=== PATIENT | female | born 1955 | race Two or more races ===

== ENCOUNTER 2024-02-26 14:17 | Emergency (ER) | payer SELFPAY ==
[~2024-02-26] VITALS: Ht 167.6 cm; Wt 68.0 kg
[2024-02-26 14:18] VITALS: PULSE 162; RESP 35; O2SAT 89
[2024-02-26] MEDS ORDERED: ETOMIDATE (2MG/ML) 20ML VIAL IV ONE (14:22)
[2024-02-26] MEDS ORDERED: SUCCINYLCHOLINE CHLORIDE 20 MG/ML 10ML VIAL IV ONE (14:22)
[2024-02-26] MEDS: ETOMIDATE (2MG/ML) 20ML VIAL IV ONE (14:27)
[2024-02-26] MEDS: SUCCINYLCHOLINE CHLORIDE 20 MG/ML 10ML VIAL IV ONE (14:27)
[2024-02-26 14:50] LABS: Basophils # (auto) 0 10 ^3/uL (0-0.2); Basophils % (auto) 0.4 % (0.0-2.0); Eosinophils # (auto) 0 10 ^3/uL (0-0.8); Eosinophils % (auto) 0.3 % (0.0-7.0); Hematocrit 40.4 % (36.0-46.0); Hemoglobin 13.7 g/dL (12.2-16.2); Lymphocytes # (auto) 1.7 10 ^3/uL (0.4-5.4); Lymphocytes % (auto) 27.7 % (10.0-50.0); Mean Corpuscular Hgb Conc. 33.9 g/dL (32.0-36.0); Mean Corpuscular Volume 97.3 fL (80.0-100.0); Monocytes # (auto) 0.2 10 ^3/uL (0-1.3); Neutrophils # (auto) 4.3 10 ^3/uL (1.6-8.6); Neutrophils % (auto) 68.6 % (37.0-80.0); Nucleated Red Blood Cells % 0.3 %; Red Blood Cells 4.15 10^6/uL (4.0-5.20); Red Cell Distribution Width 14.5 % (11.8-14.3); White Blood Cell 6.3 10^3/uL (4.4-10.8)
[2024-02-26] MEDS: ACETAMINOPHEN IV 1000 MG/100ML (10MG/ML) IV STA (15:00)
[2024-02-26] MEDS: SODIUM CHLORIDE 0.9% 1,000 ML IVB ONE (15:03)
[2024-02-26 15:22] LABS: Alanine Aminotransferase 27 U/L (7-40); Albumin 4.2 g/dL (3.2-4.8); Alkaline Phosphatase 76 U/L (46-116); Anion Gap 19 (5-15); Aspartate Aminotransferase 29 U/L (13-40); BUN/Creatinine Ratio 9.4 (10.0-20.0); Blood Alcohol 162.9 mg/dL (<10); Blood Urea Nitrogen 12 mg/dL (9-23); Calcium 9.4 mg/dL (8.7-10.4); Carbon Dioxide 14 mmol/L (20-30); Chloride 113 mmol/L (98-107); Glucose 207 mg/dL (74-106); Potassium 4.3 mmol/L (3.5-5.1); Sodium 146 mmol/L (136-145)
[2024-02-26 15:23] LABS: Bilirubin, Total 0.3 mg/dL (0.2-1.0); Total Protein 6.4 g/dL (5.7-8.2)
[2024-02-26] MEDS: MIDAZOLAM DRIP 50 mg/50mL 50 ML IV SCH (15:26)
[2024-02-26] MEDS: MIDAZOLAM DRIP 50 mg/50mL 50 ML IV ONE (15:27)
[2024-02-26 15:45] LABS: Lactic Acid w/Reflex 6.5 mmol/L (0.4-2.0)
[2024-02-26] MEDS: ADENOSINE 6 MG/2 ML INJ IV ONE (15:47)
[2024-02-26] MEDS: cefTRIAXone 1GM/50ML D5W 50 ML IV ONE (15:59)
[2024-02-26] MEDS: SODIUM CHLORIDE 0.9% 1,800 ML IV ONE (16:00)
[2024-02-26 16:02] LABS: Base Excess -13.6 mmol/L (-2.0-2.0)
[2024-02-26] MEDS: VANCOMYCIN 1GM/200ML 200 ML IV ONE (16:08)
[2024-02-26 16:31] VITALS: BP 102/74; PULSE 165; RESP 40; TEMP 106.9; O2SAT 97
[2024-02-26 17:00] VITALS: BP 103/60; PULSE 148; RESP 42; TEMP 104.2; O2SAT 95
[2024-02-26 17:01] LABS: Urine Bacteria FEW /hpf (None Seen); Urine Blood TRACE /uL (Negative); Urine Clarity Clear (Clear); Urine Color Light-Yellow (Yellow); Urine Protein, UAD TRACE (Negative); Urine Specific Gravity 1.005 (1.001-1.035); Urine Urobilinogen Normal (Negative); Urine WBC 1 /hpf (0 - 5); Urine pH 5.5 (5.0-9.0)
[2024-02-26 17:11] LABS: Amphetamine Screen, Urine Neg (NEGATIVE); Barbiturate Scree,Urine Neg (NEGATIVE); Benzodiazephine Screen, Urine Neg (NEGATIVE)
[2024-02-26 17:12] LABS: Cannabinoid Screen, Urine Neg (NEGATIVE); Cocaine Screen, Urine Neg (NEGATIVE); Opiate Scree,Urine Neg (NEGATIVE); Phencyclidine Screen, Urine Neg (NEGATIVE)
[2024-02-26] MEDS: NOREPINEPHRINE 8 MG/250ML KIT 250 ML IV ONE (17:37)
[2024-02-26] MEDS ORDERED: NOREPINEPHRINE 8 MG/250ML KIT 250 ML IV SCH (17:45)
== END 2024-02-26 17:45 | disposition short-term general hospital (02) ==
LOC: EDBD 14:17 → ER 14:17
DX: J96.00 Acute respiratory failure, unspecified whether with hypoxia or hypercapnia (principal); G92.9 Unspecified toxic encephalopathy; E11.65 Type 2 diabetes mellitus with hyperglycemia; R41.82 Altered mental status, unspecified; T21.25XA Burn of second degree of buttock, initial encounter; T24.202A Burn of second degree of unspecified site of left lower limb, except ankle and foot, initial encounter; R00.0 Tachycardia, unspecified; F10.20 Alcohol dependence, uncomplicated; Y90.8 Blood alcohol level of 240 mg/100 ml or more
CPT/HCPCS: 31500; 36415; 36556; 36600; 71045; 80053; 80307; 80320; 81001; 82553; 82805; 83605; 84484; 85025; 87040; 87070; 87205; 93005; 96361; 96365; 96375; 99291; J0153; J0330; J0696; J2250; J3370; J7030; J0131